=== PATIENT | female | born 1985 | race Caucasian/White ===

== ENCOUNTER 2019-07-27 10:26 | Day surgery (SDC) | payer OTHER ==
[2019-07-24 14:57] LABS: Absolute Lymphocytes (CBC) 1.5 K/uL (0.7-4.9); Basophils % 0.9 % (0-1.3); Hematocrit 37.3 % (36.0-45.0); Lymphocytes % 23.9 % (15.3-44.8); MPV 8.5 fL (7.6-11.3); RBC Red Blood Cell Count 4.23 M/uL (3.86-4.86)
[2019-07-24 15:12] LABS: Urine Appearance CLEAR; Urine Bilirubin NEGATIVE (NEG); Urine Blood NEGATIVE (NEG); Urine Color YELLOW; Urine Glucose NEGATIVE (NEG); Urine Protein NEGATIVE (NEG); Urine Specific Gravity 1.015 (1.005-1.030)
[2019-07-24 15:18] LABS: Urine Microscopic Reflex NO UMIC
--- NOTE | 2019-07-24 17:17 | EKG ---
Test Date: 2019-07-24 Test Time: 14:03:27 Film Producer: MADALYN MEASUREMENT RESULTS: Intervals: Rate: 59 [place]: 170 QRSD: 98 QT: 436 QTc: 431 [place]: P: 23 [place]: 170 QRS: 69 T: -34 INTERPRETIVE STATEMENTS: Sinus bradycardia T wave abnormality, consider inferior ischemia T wave abnormality, consider anterior ischemia Abnormal ECG Compared to ECG 05/05/2016 21:25:37 Sinus rhythm no longer present T-wave abnormality still present Possible ischemia still present Electronically Signed On 07-24-19 17:16:39 MILLER APPRENTICE by Nima Root
--- NOTE | 2019-07-27 10:26 | EKG ---
Test Date: 2019-07-24 Test Time: 14:04:16 Laundry Manager: MADALYN MEASUREMENT RESULTS: Intervals: Rate: 59 DE: 166 QRSD: 94 QT: 418 QTc: 413 [place]: P: 34 DE: 166 QRS: 73 T: -39 INTERPRETIVE STATEMENTS: Sinus bradycardia T wave abnormality, consider inferior ischemia T wave abnormality, consider anterior ischemia Abnormal ECG Electronically Signed On 07-27-19 10:25:39 LITHOGRAPHIC PROOFER by Nima Root
--- OUTSIDE RECORDS SUMMARY | 2019-07-27 10:34 | XMS REPORT ---
:1985 Author Organization [facility] Address [address] Franco [address] [place] [id number] Care Team Providers Name Role Phone Unavailable Unavailable Unavailable Payers Payer Name Policy Type Policy Number Effective Date Expiration Date Problems This patient has no known problems. Allergies, Adverse Reactions, Alerts Allergy Allergy Status Severity Reaction(s) Onset Inactive Treating Comments Name Type Date Date Clinician latex DA Active MO 2018-04 00:00:0 0 latex DA Active MO 2018-04 00:00:0 0 latex DA Active MO 2016-08 00:00:0 0 Medications This patient has no known medications.
[2019-07-27] MEDS ORDERED: Ringers Lactate 1,000 ML IV ONE ×2 (10:49→14:59)
[2019-07-27] MEDS ORDERED: CEFAZOLIN/SWI 2gm 2 GM/20 ML SYR ONE (10:49)
[2019-07-27] MEDS ORDERED: SCOPOLAMINE HYDROBROMIDE PATCH TD ONE ×2 (10:49→10:55)
[2019-07-27 11:11] LABS: Specific Gravity 1.015 (1.005-1.030)
[2019-07-27] MEDS ORDERED: GLYCOPYRROLATE 0.2 MG/ML SYR ONE (13:19)
[2019-07-27] MEDS ORDERED: propofoL 200 MG/20 ML VIAL IV ONE (13:19)
[2019-07-27] MEDS ORDERED: MIDAZOLAM HCL 2 MG/2 ML INJ ONE ×2 (13:19→17:49)
[2019-07-27] MEDS ORDERED: LIDOCAINE 2% MPF 5 ML VIAL ONE (13:20)
[2019-07-27] MEDS ORDERED: FENTANYL CITR 250 MCG/5 ML ONE (13:22)
[2019-07-27] MEDS ORDERED: ONDANSETRON 4 MG/2 ML VIAL ONE ×3 (13:24→20:46)
[2019-07-27] MEDS ORDERED: ROCURONIUM 50 MG/5 ML VIAL IV ONE (13:24)
[2019-07-27] MEDS ORDERED: NEOSTIGMINE 1 MG/ML -5 ML ONE (13:25)
[2019-07-27] MEDS ORDERED: BUPIVACAINE 0.25% PF 30 ML VIAL ONE (14:59)
[2019-07-27] MEDS ORDERED: KETOROLAC 30 MG/ML INJ ONE (15:36)
[2019-07-27] MEDS ORDERED: dexAMETHasone 10 MG/ML VIAL ONE (15:36)
[2019-07-27] MEDS ORDERED: HYDROCODONE/APAP 5/325 MG TAB PO PRN (17:05)
[2019-07-27] MEDS ORDERED: MEPERIDINE HCL 25 MG/0.5 ML IM PRN (17:05)
[2019-07-27] MEDS ORDERED: IBUPROFEN 200 MG TAB PO PRN (17:05)
[2019-07-27] MEDS ORDERED: PROMETHAZINE INJ 25 MG/ML AMP IV PRN (17:05)
--- NOTE | 2019-07-27 17:09 | P.BOP ---
Preoperative diagnosis: CIN3 Postoperative diagnosis: same and endometriosis Primary procedure: TLH BS Secondary procedure: endometriosis excision Manager Provider Relations: Myra Clark Estimated blood loss: 50 Specimen: uterus bilateral tubes, endometriosis, left alt broad lig Findings: extensive endo, 2layer cuff closure, vlock+0-vicryl interrupted sutures Anesthesia: General Complications: None Transferred to: Recovery Room Condition: Good
[2019-07-27] MEDS: HYDROMORPHONE HCL 1 MG/ML INJ ONE ×4 (17:17→17:32)
[2019-07-27] MEDS ORDERED: MEPERIDINE HCL 25 MG/0.5 ML ONE (17:38)
[2019-07-27 18:13] VITALS: BP 118/58; TEMP 97.5; O2SAT 96
[2019-07-27] MEDS ORDERED: NA CHLORIDE 0.9% 500 ML ONE (20:39)
--- NOTE | 2019-07-28 00:45 | OP ---
Date of Procedure: 07/27/2019 Surgeon: Carmella Harvey MD Customs Compliance Manager: Myra Thibodeaux. Preoperative Diagnosis: BEBA 3. Postoperative Diagnoses: BEBA 3 and endometriosis. Procedures Performed: Total laparoscopic hysterectomy, bilateral salpingectomy. Endometriosis excis ion. Anesthesia: General endotracheal. Estimated Blood Loss: 50. Specimens: Uterus, bilateral tubes endometriosis left lateral broad ligament and from the posterior aspect of the cuff and anterior serosa of the uterus. Complications: No complications. Drains: No drains. Condition: The patient's condition is stable. Indications: Patient is a 33-year-old female who is done with childbearing, had an abnormal Pap, had dysplasia that was BEBA 3. She had a LEEP procedure where the margins were positive as well as ECC w as positive for BEBA 3. We discussed the options of cold knife cone, hysterectomy and she wanted to p roceed with a hysterectomy and she was done with childbearing. Description Of Procedure: Patient was consented and taken back to OR. 2 g of Ancef were given. Aft er she was placed in a dorsal lithotomy position, pelvic exam performed. Abdomen, vulva, vagina, and perineum prepped and draped in a sterile fashion. Varela placed to drain the bladder and the large V Care introduced into the uterus. After this was draped, 1 cm infraumbilical incision was made with a scalpel using the open laparoscopy technique. Fascia was incised and tagged with 0 Vicryl sutures, peritoneum was entered sharply. S-retractors were placed. Florencia introduced. Site of entry was melissa cked, unremarkable. Patient was placed in Trendelenburg 5 mm left lower quadrant, 10 mm suprapubic p orts placed under direct vision after injecting with lidocaine at the fascia and the skin both at the beginning and at the end. Endometriosis was noted in the left lateral broad ligament posterior distal uterosacral ligaments on the serosa of the uterus anteriorly as well. Very tiny implants in the left lateral wall. These wer e left alone, very insignificant. Ovaries completely unremarkable. There was 1 area on the left ova ry, there was endometriosis which was removed from the serosa and cauterized and the base after the a blation was removed. The ovaries were preserved and the tubes were removed and started dissection left lateral broad ligam ent after the endometriotic implant was excised as well. The tube was removed and handed off for [facility]. Then the uteroovarian ligament and broad ligament were taken down, broad ligament was opened up anteriorly creating a bladder flap posteriorly taken down to the uterosacral ligament where there was some endometriosis, which was included with the specimen. On the opposite side, similar dissection was performed and after the Endo implants were also included , uteroovarian and round were all taken down and then broad ligament was taken down. The tube was re moved and handed off for permanent pathology as well. Then the bladder flap was connected. Vessels were taken down on the right side, then on the left side. There was a small amount of bleeding from the area of the vaginal wall and the cardinal ligaments. This was cauterized with the help of the ba sket tip bipolar and taken down with the LigaSure. Once the vessels on the opposite side were also t aken down on the left side, then separate circumferential colpotomy with a monopolar hook placed. Sp ecimen removed through the vagina. Entire cervix was included into the specimen. Vaginal closure wa s done with the V-Loc suture 2-0 in a continuous running fashion for the vaginal epithelial closure. Then the fascial closure of the anterior and posterior meyer were done with the help of 0 Vicryl sut ures in a gxwrtp-wv-inmqp fashion x5. Once the entire closure was done, there was good support appos ition. Hemostasis and thorough irrigation and suction were performed. Ovaries were left in place an d well vascularized. All the trocars were removed under direct vision. EBL was 50. Gas desufflated . Fascia at the umbilicus was closed through the sutures placed earlier tied to each other. Then si mple 0-Vicryl suture for the fascia at the suprapubic area. All the skin incisions were closed with interrupted 4-0 Vicryl sutures and Dermabond placed. Varela and the vaginal occlusion sponges were re moved. Instrument, needle, and sponge counts were done and were correct at the end of the case. Sarah jones tolerated the procedure well and she was recovered from anesthesia and taken to PACU in stable c ondition. She will follow up with me in 1 week. SHANE/JARET Voice ID: [id number] Report ID: [id number]
== END 2019-07-27 21:15 | disposition home or self-care (01) ==
LOC: OR 10:26
PROVIDERS: ATTEND Obstetrics & Gynecology
PROC: 0UTC4ZZ Resection of Cervix, Percutaneous Endoscopic Approach (ICD-10-PCS; 2019-07-27)
PROC: 0UT74ZZ Resection of Bilateral Fallopian Tubes, Percutaneous Endoscopic Approach (ICD-10-PCS; 2019-07-27)
PROC: 0UB14ZZ Excision of Left Ovary, Percutaneous Endoscopic Approach (ICD-10-PCS; 2019-07-27)
PROC: 0UB44ZZ Excision of Uterine Supporting Structure, Percutaneous Endoscopic Approach (ICD-10-PCS; 2019-07-27)
PROC: 0UT94ZZ Resection of Uterus, Percutaneous Endoscopic Approach (ICD-10-PCS; principal; 2019-07-27 11:30)
DX: D06.9 Carcinoma in situ of cervix, unspecified (principal); D25.2 Subserosal leiomyoma of uterus; N80.3 Endometriosis of pelvic peritoneum; N80.1 Endometriosis of ovary; N72 Inflammatory disease of cervix uteri; R00.0 Tachycardia, unspecified; E03.9 Hypothyroidism, unspecified; F41.9 Anxiety disorder, unspecified; F32.9 Major depressive disorder, single episode, unspecified; Z91.040 Latex allergy status; Z83.3 Family history of diabetes mellitus; Z82.49 Family history of ischemic heart disease and other diseases of the circulatory system; Z80.0 Family history of malignant neoplasm of digestive organs
CPT/HCPCS: 93005 ×2; 85025; 36415; 86900; 86850; 81025; 86901; 81003; 88307; 58571; 58662; J2704; J2250 ×2; J3010; J1100; J2175; J1170 ×2; J2710; J0690; J7120 ×2; J7040; J2405 ×3

== ENCOUNTER 2020-03-04 08:36 | Day surgery (SDC) | payer OTHER ==
[2020-03-01 10:48] LABS: Absolute Lymphocytes (CBC) 1.6 K/uL (0.7-4.9); Basophils % 1.3 % (0-1.3); Hematocrit 38.1 % (36.0-45.0); Lymphocytes % 25.1 % (15.3-44.8); MPV 8.3 fL (7.6-11.3); RBC Red Blood Cell Count 4.34 M/uL (3.86-4.86)
[2020-03-01 10:50] LABS: Potassium 4.2 mmol/L (3.5-5.1)
--- OUTSIDE RECORDS SUMMARY | 2020-03-04 08:58 | XMS REPORT | Continuity of Care Document ---
:1985 Author Organization [facility] Address [address] Franco [address] [place] [id number] Care Team Providers Name Role Phone Unavailable Unavailable Unavailable Payers Payer Name Policy Type Policy Number Effective Date Expiration Date S ource Problems This patient has no known problems. Allergies, Adverse Reactions, Alerts Allergy Allergy Status Severity Reaction(s) Onset Inactive Treating Comm ents Source Name Type Date Date Clinician latex DA Active MO 2017-06 [facility] [place] latex DA Active MO 2017-06 [facility] latex DA Active [place] 2017-0 [facility] Medications This patient has no known medications. Procedures This patient has no known procedures. Results This patient has no known results.
[2020-03-04] MEDS ORDERED: Ringers Lactate 1,000 ML IV ONE (09:02)
[2020-03-04] MEDS ORDERED: CEFAZOLIN/SWI 1gm 1 GM/10 ML SYR ONE (09:03)
[2020-03-04] MEDS ORDERED: KETOROLAC 30 MG/ML INJ ONE (09:34)
[2020-03-04] MEDS ORDERED: FENTANYL CITR 100 MCG/2 ML ONE (09:34)
[2020-03-04] MEDS ORDERED: propofoL 200 MG/20 ML VIAL IV ONE (09:34)
[2020-03-04] MEDS ORDERED: dexAMETHasone 10 MG/ML VIAL ONE (09:34)
[2020-03-04] MEDS ORDERED: MIDAZOLAM HCL 2 MG/2 ML INJ ONE (09:34)
[2020-03-04] MEDS ORDERED: LIDOCAINE 2% MPF 5 ML VIAL ONE (09:34)
[2020-03-04] MEDS ORDERED: ONDANSETRON 4 MG/2 ML VIAL ONE (09:35)
[2020-03-04] MEDS ORDERED: EPHEDRINE SULF 50 MG/ML VIAL ONE (10:02)
--- NOTE | 2020-03-04 10:37 | P.BOP ---
Preoperative diagnosis: tender lower back inflammed subcutaneus mass Postoperative diagnosis: lower back inflammed pilonidal cyst Primary procedure: Wide excision of tender lower back inflammed pilonidal cyst 6x6 cm Dehydration Plant Operator: Myra Clark (Jamie) Estimated blood loss: <10cc Specimen: lower back inflammed pilonidal cyst Findings: lower back inflammed pilonidal cyst Anesthesia: General Complications: None Drain(s): JEANMARIE drain Transferred to: Recovery Room Condition: Good
[2020-03-04 10:51] VITALS: O2SAT 100
[2020-03-04 11:24] VITALS: BP 111/54; TEMP 96.8
--- NOTE | 2020-03-04 11:28 | OP ---
Date of Procedure: 03/04/2020 Surgeon: Al Fernando MD Extractions Technician: TOO Wilson. Preoperative Diagnosis: Tender lower back inflamed subcutaneous mass. Postoperative Diagnosis: Lower back inflamed pilonidal cyst. Procedure: Wide excision of tender lower back inflamed pilonidal cyst 6 x 6 cm. Estimated Blood Loss: Less than 10 mL. Drains: JEANMARIE #7. Findings: Patient initially came with a mass and when we opened that area, we noticed the patient lund d a large cyst present in the area near the sacrum. It was completely excised intact. Indication: This is a case of a female who comes to us with a tender lower back mass, inflamed. Pre viously inflammation calmed done a little bit, but is still a large mass present there. Given the pa in and discomfort, she wants that excised. The benefits, alternatives, and risks of excision were fu lly explained, which include, but not limited to infection, bleeding, damage to adjacent structures, anesthesia complication, nonhealing wound, NH and even . She also understands this may not reli carlitos her symptoms. She might need more than one surgical intervention. She signed the consent. She understands differential diagnosis may include a cyst, may include a mass, so we have to open the ski n to see what we find and then proceed accordingly. She understands also there is a chance also of a packing. She signed a consent. Description Of Procedure: The patient was brought to the operating room. The area of concern was ma rked by me and the patient in her room. Patient was placed in supine position and then lateral decub itus position after intubation. A time-out was called. The area was prepped and draped in sterile f ashion. We proceeded to do a wedge incision in the skin and going nice and slow since we feel there is liquid also inside. When we went there, we noted the patient has a large area located right in th e area looked like a pilonidal cyst, so carefully, the skin was removed from that area and then deep down subcutaneous tissue down to sacrum. The mass was completely excised in 1 unit. We have a large cavity left behind. We were afraid may have developed a seroma, so I left a JEANMARIE drain exiting throug h another incision and secured in place with 2-0 nylon. Then, this was closed in layers with 3-0 chr omic in deep layers, 3-0 chromic in mid layers and then 3-0 nylon on top. The patient tolerated the procedure well. Hemostasis was obtained before closure and local anesthetic also was placed before c losure. Patient was sent to Recovery in stable condition. Sponge count, instrument counts correct. Disposition: Tender back inflamed pilonidal cyst. Procedures: Wide excision of inflamed pilonidal cyst 6 x 6 cm. Disposition: Home. Activity: As tolerated. No heavy lifting. Plan: Follow up in my office in 1 week. Call for appointment at [phone]. JEANMARIE drain. Record output q.24 hours. Medications: Tylenol No. 3 q.4 hours p.r.n. pain, Bactrim DS p.o. b.i.d., Zofran 4 q.6 hours p.r.n. nausea. Keep area dry for 48 hours, then may shower. JO ANN/JARET Voice ID: [id number] Report ID: [id number]
[2020-03-04] MEDS ORDERED: CODEINE 30MG/APAP 300MG TAB ONE (11:48)
== END 2020-03-04 12:25 | disposition home or self-care (01) ==
LOC: OR 08:36
PROVIDERS: ATTEND Surgery
PROC: 0JB70ZZ Excision of Back Subcutaneous Tissue and Fascia, Open Approach (ICD-10-PCS; 2020-03-04)
PROC: 0JQ70ZZ Repair Back Subcutaneous Tissue and Fascia, Open Approach (ICD-10-PCS; principal; 2020-03-04 10:15)
DX: L72.0 Epidermal cyst (principal); E03.9 Hypothyroidism, unspecified; F41.9 Anxiety disorder, unspecified; Z20.828 Contact with and (suspected) exposure to other viral communicable diseases
CPT/HCPCS: 85025; 80048; 36415; 88304; 11406; 12032; U0002; J2704; J2250; J3010; J1100; J0690; J7120; J2405

== ENCOUNTER 2024-05-24 22:13 | Emergency (ER) | payer OTHER ==
--- OUTSIDE RECORDS SUMMARY | 2024-05-24 22:15 | XMS REPORT | Continuity of Care Document ---
Author Name Unknown Address [address] [place] [address]. [address] [place] [address] [facility] Address [address] [facility]. [address] [place] [address] Care Team Providers Care Cream Tester Name Role Phone Unavailable Unavailable Unavailable Payers Payer Name Policy Type Policy Number Effective Date Expirati on Date Source Allergies, Adverse Reactions, Alerts Allergy Name Allergy Type Status Severity Reaction(s) Onset Date Inactive Date Treating Clinician Comments Source latex DA Active [place] 2017-06 00:00: 00 [facility] latex DA Active MO 2017-06 00:00: 00 [facility] latex DA Active [place] 08-21 00:00: 00 [facility]
[2024-05-24 23:00] LABS: Absolute Basophils 0.1 K/uL (0-0.5); Absolute Eosinophils 0.3 K/uL (0-0.5); Absolute Lymphocytes (CBC) 2.4 K/uL (0.7-4.9); Absolute Monocytes 0.5 K/uL (0.1-1.3); Absolute Neutrophil 4.9 K/uL (1.8-8.0); Basophils % 1.4 % (0-1.3); Eosinophils % 4.2 % (0-4.4); Hematocrit 38.1 % (36.0-45.0); Hemoglobin 12.9 g/dL (12.0-15.0); Lymphocytes % 29.1 % (15.3-44.8); MCH 29.8 pg (27.0-35.0); MCHC 33.8 g/dL (32.0-36.0); MPV 7.2 fL (7.6-11.3); Neutrophils % 59.3 % (41.7-73.7); Nucleated Red Blood Cells % 0.1 % (0-0); Platelets 325 thou/uL (152-406); RBC Red Blood Cell Count 4.33 M/uL (3.86-4.86); Red Cell Distribution Width 13.9 % (12.1-15.2)
[2024-05-24 23:26] LABS: Albumin/Globulin Ratio 1.2 (1.1-1.8); Anion Gap 8.7 mEq/L (5.0-15.0); Bilirubin Total 0.2 mg/dL (0.2-1.0); Globulin 3.3 g/dL (2.3-3.5); Potassium 3.7 mEq/L (3.5-5.1); Protein, Total 7.3 g/dL (6.4-8.2)
--- NOTE | 2024-05-25 00:26 | RAD REPORT ---
PROCEDURE: US ABDOMEN LIMITED INDICATION: Abdominal pain. COMPARISON: None. TECHNIQUE: Grayscale, color and spectral Doppler ultrasound of the right upper quadrant was performed . FINDINGS: VISUALIZED LIVER: Echotexture: Normal. Biliary ducts: No dilatation. Cyst/masses: None. GALLBLADDER: Gallbladder is contracted. No obvious stones are identified. No gallbladder wall thicken ing or pericholecystic fluid. Negative Warren's sign. COMMON DUCT: The common duct measures 1.9 mm, within normal range. There is no evidence of choledocho lithiasis. PORTAL VEIN: Antegrade hepatopedal flow. OTHER: one. IMPRESSION: No obvious stone in contracted gallbladder. No sonographic evidence of cholecystitis. Electronically signed by: Nataliia Webster MD 05/25/2024 12:17 AM [facility] Due to temporary technical issues with the PACS/[employer] scribe reporting system, reports are being signed by the in-house radiologist without review as a courtesy to ensure prompt reporting the interpreting radiologist is fully responsible for the content of the report. Transcribed Date/Time: 05/25/2024 12:26 AM
--- NOTE | 2024-05-25 00:35 | ER ---
Nurse's Notes [facility] Name: Sarah Lopez Age: 38 yrs Sex: Female : 1985 Arrival Date: 05/24/2024 Time: 22:13 Bed 18 Private MD: Diagnosis: Upper abdominal pain, unspecified Presentation: 05/24 22:33 Chief complaint: Chief complaint: Patient states: epigastric pain radiating to chest lg3 and left arm with nausea X1 HR. 22:38 Coronavirus screen: Client denies travel out of the [place] in the last 14 days. At this lg3 time, the client does not indicate any symptoms associated with coronavirus-19. Ebola Screen: No symptoms or risks identified at this time. Initial Sepsis Screen: Does the patient meet any 2 criteria? No. Patient's initial sepsis screen is negative. Does the patient have a suspected source of infection? No. Patient's initial sepsis screen is negative. Risk Assessment: Do you want to hurt yourself or someone else? Patient reports no desire to harm self or others. Onset of symptoms was May 24, 2024. 22:38 Method Of Arrival: Ambulatory lg3 22:38 Acuity: RAUL 3 lg3 Triage Assessment: 22:39 General: Appears in no apparent distress. uncomfortable, Behavior is cooperative, lg3 anxious, crying, restless. Pain: Complains of pain in epigastric area Pain radiates to chest and left arm. EENT: No deficits noted. No signs and/or symptoms were reported regarding the EENT system. Neuro: Walton Agitation-Sedation Scale (RASS): +1 Restless Level of Consciousness is awake, alert, obeys commands, Oriented to person, place, time, situation. Cardiovascular: Reports chest pain, Capillary refill < 3 seconds Clubbing of nail beds is absent JVD is absent Patient's skin is warm and dry. Respiratory: Airway is patent Respiratory effort is even, unlabored, Respiratory pattern is regular, symmetrical. GI: Abdomen is flat, non-distended, Pt is actively vomiting clear fluid, Reports upper abdominal pain, epigastric pain, nausea, vomiting. : No signs and/or symptoms were reported regarding the genitourinary system. Derm: No deficits noted. No signs and/or symptoms reported regarding the dermatologic system. Skin is intact, is healthy with good turgor, Skin is dry, Skin is normal, Skin temperature is warm. Musculoskeletal: No deficits noted. No signs and/or symptoms reported regarding the musculoskeletal system. Circulation, motion, and sensation intact. Range of motion: intact in all extremities. FISH PITCHER: 22:39 LMP N/A - Hysterectomy, Not lg3 Historical: - Allergies: 22:39 Latex; lg3 - Home Meds: 22:39 Paxil Oral [Active]; levothyroxine oral [Active]; Trazodone Oral [Active]; Xanax Oral lg3 [Active]; - PMHx: 22:39 Bipolar disorder; Hypothyroidism; Pneumothorax; Anxiety; lg3 - PSHx: 22:39 Total abdominal hysterectomy; lg3 - Immunization history:: Adult Immunizations up to date. - Infectious Disease History:: Denies. - Social history:: Smoking status: Patient denies any tobacco usage or history of. Patient uses alcohol, but reports only rare drinking. Patient/guardian denies using street drugs. Screenin/05 00:00 [facility] ED Fall Risk Assessment (Adult) History of falling in the last 3 months, cp4 including since admission No falls in past 3 months (0 pts) Confusion or Disorientation No (0 pts) Intoxicated or Sedated No (0 pts) Impaired Gait No (0 pts) Mobility Assist Device Used No (0 pt) Altered Elimination No (0 pt) Score/Fall Risk Level 0 - 2 = Low Risk Oriented to surroundings, Maintained a safe environment, Assessed \T\ reinforced patient's understanding of fall precautions, Hourly rounding (assess needs \T\ fall precautionary measures) done. Abuse screen: Denies threats or abuse. Nutritional screening: No deficits noted. Tuberculosis screening: No symptoms or risk factors identified. Assessment: 00:00 General: Appears in no apparent distress. Behavior is calm, cooperative, appropriate cp4 for age. Pain: Complains of pain in right upper quadrant and left arm and chest and abdomen and epigastric area Pain currently is 2 out of 10 on a pain scale. Pain: Pain began suddenly. Pain: Pain does not radiate. Neuro: Level of Consciousness is awake, alert, obeys commands, Oriented to person, place, time, situation. Cardiovascular: Patient's skin is warm and dry. Respiratory: Airway is patent Respiratory effort is even, unlabored. GI: Abdomen is round non-distended, Bowel sounds present X 4 quads. Abd is soft and non tender X 4 quads. : No signs and/or symptoms were reported regarding the genitourinary system. EENT: No signs and/or symptoms were reported regarding the EENT system. Derm: No signs and/or symptoms reported regarding the dermatologic system. Musculoskeletal: No signs and/or symptoms reported regarding the musculoskeletal system. Vital Signs: 05/24 22:38 BP 136 / 91; Pulse 82; Resp 17; Temp 98(O); Pulse Ox 100% on R/A; Weight 68.04 kg (R); lg3 Height 5 ft. 5 in. (R); Pain 9/10; 05/25 00:22 BP 104 / 67; Pulse 71; Resp 18; Pulse Ox 95% ; cp4 05/24 22:38 Body Mass Index 24.96 (68.04 kg, 165.1 cm) lg3 05/24 22:38 Pain Scale: Adult lg3 ED Course: 05/24 22:30 Patient arrived in ED. lg3 22:39 Jeannie Ny FNP-C is PHCP. kb 22:39 Deandre Triplett MD is Attending Physician. kb 22:39 Triage completed. lg3 22:39 Arm band placed on right wrist. lg3 22:48 Kristel Wheeler is Primary Nurse. cp4 23:16 Abdomen Limited US In Process Unspecified. EDMS 23:17 Chest Single View XRAY In Process Unspecified. EDMS 05/25 00:00 Bed in low position. Call light in reach. Client placed on continuous cardiac and pulse cp4 oximetry monitoring. NIBP monitoring applied. reverse unit operator fisherman on. Pulse ox on. NIBP on. 00:00 No provider procedures requiring assistance completed. Inserted saline lock: 22 gauge cp4 in right antecubital area, using aseptic technique. Blood collected. Flushed with 10 mL NS. Patient maintains SpO2 saturation greater than 95% on room air. 00:44 Provided Education on: abdominal pain. cp4 00:44 intact, bleeding controlled, No redness/swelling at site. Pressure dressing applied. cp4 Administered Medications: 00:35 Not Given (Patient Refused): ondansetron 4 mg IVP once; over 2 minutes cp4 00:35 Not Given (Patient Refused): morphineor iv 4 mg IVP once over 4 mins cp4 00:35 Not Given (Patient Refused): ns 0.9% 1000 ml IV at 1 bolus Per protocol; to be given as cp4 a bolus over 60 minutes 00:36 Not Given (Patient Refused): swottctcad79 mg IVP once; dilute with 10 mL 0.9% NaCl; cp4 give over 2 minutes Medication: 00:00 VIS not applicable for this client. cp4 Outcome: 00:35 Discharge ordered by . adrian 00:44 Discharged to home ambulatory, cp4 00:44 Condition: stable 00:44 Discharge instructions given to patient, Instructed on discharge instructions, follow up and referral plans. Demonstrated understanding of instructions, follow-up care, 00:46 Patient left the ED. cp4 Signatures: Dispatcher [employer] EDJeannie Gonzalez, PUBLIC POLICY MANAGER-C PUBLIC POLICY MANAGER-Latha Clark RN RN lg3 Kristel Wheeler cp4 Corrections: (The following items were deleted from the chart) 05/24 22:39 22:33 Chief complaint: lg3 lg3
--- NOTE | 2024-05-25 00:36 | EDPHYS ---
Physician Documentation [facility] Name: Sarah Lopez Age: 38 yrs Sex: Female : 1985 Arrival Date: 05/24/2024 Time: 22:13 Bed 18 Private MD: ED Physician Deandre Triplett HPI: 05/24 23:22 This 38 yrs old Female presents to ER via Ambulatory with complaints of Chest Pain, Arm kb Pain. 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 Reports nausea as well. No aggravating or alleviating factors. Pt has never had this pain before. 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 - Infectious Disease History:: Denies. - Social history:: Smoking status: Patient denies any tobacco usage or history of. Patient uses alcohol, but reports only rare drinking. Patient/guardian denies using street drugs. ROS: 23:22 Constitutional: As per HPI kb Exam: 23:21 Head/Face: Normocephalic, atraumatic. ENT: Moist Mucous membranes Cardiovascular: kb Regular rate Respiratory: Respirations even and unlabored. No increased work of breathing. Talking in full sentences Skin: Warm, dry with normal turgor. Normal color. MS/ Extremity: Pulses equal, no cyanosis. Neurovascular intact. Full, normal range of motion. Neuro: Awake and alert, GCS 15, oriented to person, place, time, and situation. 23:21 ECG was reviewed by the Attending Physician. 23:21 Abdomen/GI: Inspection: abdomen appears normal, Bowel sounds: normal, Palpation: soft, in all quadrants, moderate abdominal tenderness, in the epigastric area and right upper quadrant, 23:23 Constitutional: The patient appears alert, awake, in obvious pain, kb Vital Signs: 22:38 BP 136 / 91; Pulse 82; Resp 17; Temp 98(O); Pulse Ox 100% on R/A; Weight 68.04 kg (R); lg3 Height 5 ft. 5 in. (R); Pain 9/10; 05/25 00:22 BP 104 / 67; Pulse 71; Resp 18; Pulse Ox 95% ; cp4 05/24 22:38 Body Mass Index 24.96 (68.04 kg, 165.1 cm) lg3 05/24 22:38 Pain Scale: Adult lg3 MDM: 05/24 22:39 Medical Screening Exam initiated kb 23:22 Data reviewed: vital signs, nurses notes. kb 23:23 Differential diagnosis: cholecystitis, Cholelithiasis, gastroesophageal reflux disease, kb myocardia ischemia or infarction, Peptic Ulcer Disease. 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 ED course: Pt vomited after initial exam and symptoms resolved. Symptoms have not returned. Educated to follow up with PCP or GI. Verbal understanding received. . 12 22:39 Order name: CBC with Diff; Complete Time: 23:09 kb 05/24 22:39 Order name: CMP; Complete Time: 23:35 kb 05/24 22:39 Order name: Lipase; Complete Time: 23:35 kb 05/24 22:39 Order name: Troponin High Sensitivity; Complete Time: 23:35 kb 05/24 22:39 Order name: Abdomen Limited US kb 05/24 22:39 Order name: Chest Single View XRAY kb 05/24 22:39 Order name: EKG; Complete Time: 22:40 kb 05/24 22:39 Order name: IV Saline Lock; Complete Time: 22:53 kb 05/24 22:39 Order name: Labs collected and sent; Complete Time: 22:53 kb 05/24 22:39 Order name: EKG - Nurse/Tech; Complete Time: 22:53 kb EC/04 23:21 Rate is 60 beats/min. Rhythm is regular. QRS [place] is Normal. OR interval is normal at kb 130 msec. QRS interval is normal at 96 msec. QT interval is normal at 434 msec. Administered Medications: 05/25 00:35 Not Given (Patient Refused): ondansetron 4 mg IVP once; over 2 minutes cp4 00:35 Not Given (Patient Refused): morphineor iv 4 mg IVP once over 4 mins cp4 00:35 Not Given (Patient Refused): ns 0.9% 1000 ml IV at 1 bolus Per protocol; to be given as cp4 a bolus over 60 minutes 00:36 Not Given (Patient Refused): [id number] mg IVP once; dilute with 10 mL 0.9% NaCl; cp4 give over 2 minutes Disposition: 07:15 Co-signature as Attending Physician, Deandre Triplett MD I agree with the assessment sp4 and plan of care. I reviewed the patient's care provided by the Advanced Practice Provider and agree with the diagnosis and treatment plan. Disposition Summary: 05/25/24 00:35 Discharge Ordered Notes: Location: Home kb Condition: Stable kb Diagnosis - Upper abdominal pain, unspecified kb Followup: kb - With: Emergency Department - When: As needed - Reason: Worsening of condition Followup: kb - With: Private Physician - When: 2 - 3 days - Reason: Recheck today's complaints, Continuance of care, Re-evaluation by your physician Discharge Instructions: - Discharge Summary Sheet kb - Abdominal Pain, Adult, [id number] kb Forms: - Medication Reconciliation Form kb - Antibiotic Education kb - Prescription Opioid Use kb - Patient Portal Instructions kb - Leadership Thank You Letter kb Signatures: Dispatcher [employer] [facility] Jeannie Ny FNP-Greg LOPEZ-Latha Clark RN RN lg3 Deandre Triplett MD MD sp4 Kristel Wheeler cp4 Corrections: (The following items were deleted from the chart) 05/24 23:23 23:21 Constitutional: This is a well developed, well nourished patient who is awake, kb alert, and in no acute distress. Head/Face: Normocephalic, atraumatic. ENT: Moist Mucous membranes Cardiovascular: Regular rate Respiratory: Respirations even and unlabored. No increased work of breathing. Talking in full sentences Skin: Warm, dry with normal turgor. Normal color. MS/ Extremity: Pulses equal, no cyanosis. Neurovascular intact. Full, normal range of motion. Neuro: Awake and alert, GCS 15, oriented to person, place, time, and situation. kb
--- NOTE | 2024-05-25 06:01 | RAD REPORT ---
CLINICAL HISTORY: CHEST PAIN. COMPARISON: None. TECHNIQUE: Single view AP chest radiograph(s). FINDINGS: The lungs are clear. No pulmonary infiltrate or edema identified. No pleural effusion. No pneumotho rax. Nonenlarged cardiomediastinal silhouette. No significant osseous abnormality. IMPRESSION: No acute cardiopulmonary abnormality identified by radiograph. Electronically signed by: Patricia Severino MD 05/25/2024 12:13 AM [facility] Due to temporary technical issues with the PACS/Sokrati reporting system, reports are being signed by the in-house radiologist without review as a courtesy to ensure prompt reporting the interpreting radiologist is fully responsible for the content of the report. Transcribed Date/Time: 05/25/2024 6:00 AM
[2024-05-25 08:09] VITALS: TEMP 98
[2024-05-25 08:10] VITALS: BP 104/67; O2SAT 95
== END 2024-05-25 00:46 | disposition home or self-care (01) ==
LOC: ER 22:13
DX: R10.13 Epigastric pain (principal); R10.11 Right upper quadrant pain
CPT/HCPCS: 36415; 71045; 76705; 80053; 83690; 84484; 85025; 99284